=== PATIENT | female | born 1975 | race Two or more races ===

== ENCOUNTER 2025-11-06 08:40 | Outpatient (AMB) | payer OTHER, SELFPAY ==
--- OUTSIDE RECORDS SUMMARY | 2025-11-06 09:05 | XMS_ITS | Clinical Summary ---
Author Organization [facility] Building Address [address] [place] [phone] Phone Care Team Providers Care English Language Arts Teacher Name Role Phone Arturo Galindo MD Primary Care Provider [phone] Allergies No known active allergies Medications bisacodyL (Dulcolax, bisacodyl,) 5 mg EC tablet Take 2 tabs at 6pm as directed. 09/19/2023 Active Hospital, Clinic, or Other Facility Administered Medication Ordered Dose Route Frequency Start Date End Date Status levonorgestreL (MIRENA) 21 mcg/24hr (up to 8 yrs) 52 mg IUDIndications:Encounter for IUD removal and reinsertion utrn Once 12/28/2024 Active Active Problems Problem Noted Date Diagnosed Date Morbid obesity with BMI of 40.0-44.9, adult 10/21 Chronic bilateral low back pain without sciatica 09/05/2019 Lumbar facet arthropathy 09/05/2019 Spinal stenosis of lumbar re gion without neurogenic claudication 09/05/2019 Foot pain, bilateral 08/09/2014 Morbid obesity 08/09/2014 Immunizations Immunization Administration Dates Next Due Influenza Quadravalent, MDCK , 0.5ml, preservative free (Flucelvax) 6mo and older 12/18/2018 Tdap Tetanus diptheria acell ular pertussis (Boostrix; Adacel) 7yo and older 08/09/2014 Surgical History Surgery Date Site/Laterality Comments OTHER SURGICAL HISTORY PROCEDURE: DENIES PREVIOUS SURGERY Medical History Medical History Date Comments Personal history of pulmonary embolism DX:Personal history of pulmonary embolism Morbid obesity (CMS/HCC V24, CMS/HCC V28) DX:Morbid obesity (HCC) Pain in limb DX:Pain in limb; COMMENT: foot pain Family History Medical History Relation Name Comments Diabetes Father Diabetes Mother Breast cancer Sister 40 recent Coronary artery disease Neg Hx Hypertension Neg Hx Relation Name Status Comments Father Mother Sister 40 Alive Social History Tobacco Use Types Packs/Day Years Used Date Smoking Tobacco: Never Smokeless Tobacco: Never Tobacco Cessation:Counseling Given: Not Answered Alcohol Use Standard Drinks/Week Comments No 0 (1 standard drink = 0.6 oz pur e alcohol) Comments No Sex and Gender Information Value Date Recorded Sex Assigned at Not on file Legal Sex Female 4:53 AM EST Gender Identity Not on file Sexual Orientation Not on file Last Filed Vital Signs Vital Sign Reading Time Taken Comments Blood Pressure 114/68 01/04/2025 2:31 PM EST Pulse 90 01/04/2025 2:31 PM EST Temperature - - Respiratory Rate 18 01/04/2025 2:31 PM EST Oxygen Saturation - - Inhaled Oxygen Concentration - - Weight 115 kg (254 lb) 01/04/2025 2:31 PM EST Height 157.5 cm (5' 2 ) 01/04/2025 2:31 PM EST Body Mass Index 46.46 01/04/2025 2:31 PM EST Plan of Treatment Health Maintenance Due Date Last Done Comments Colorectal Cancer Screening: Colonoscopy 1975 Hepatitis B Vaccines (1 of 3 - 19+ 3-dose series) 1994 Cervical Cancer Screening: Pap Smear 07/03/2021 07/03/2018, 07/03/2018 Cholesterol Screening (Lipid Panel) 10/30/2022 08/09/2014 HIV Screening 10/30/2022 Hepatitis C Screening 10/30/2022 Social Influencers of Health Screening 10/30/2022 Breast Cancer Screening 05/28/2024 05/28/20 22, 11/28/2020, 09/10/2019, Additional history exists DTaP,Tdap,and Td Vaccines (2 - Td or Tdap) 08/09/2024 08/09/2014 Depression Screening 11/21/2024 Pneumococcal Vaccine: 50+ Years (2 of 2 - PCV) 2025 10/23/2009 RSV Immunization Adult Patients (1 - Risk 50-74 years 1-dose series) 2025 Zoster Vaccines (1 of 2) 2025 COVID-19 Vaccine ( - 2024- season) 2025 12/14/2021, 04/25/2021, 04/04/2021 Influenza Vaccine (#1) 2025 3, 12/18/2018, 09/02/2016, Additional history exists HIB Vaccines Aged Out No longer eligi ble based on patient's age to complete this topic HPV Vaccines Aged Out No longer eligi ble based on patient's age to complete this topic Hepatitis A Vaccines Aged Out No long er eligible based on patient's age to complete this topic IPV Vaccines Aged Out No longer eligi ble based on patient's age to complete this topic MMR Vaccines Aged Out No longer eligi ble based on patient's age to complete this topic Meningococcal ACWY Vaccine Aged Out N o longer eligible based on patient's age to complete this topic Meningococcal B Vaccine Aged Out No l onger eligible based on patient's age to complete this topic RSV Immunization Patients Under 20 months Aged Out No longer eligible based on patient's age to complete this topic Varicella Vaccines Aged Out No longer eligible based on patient's age to complete this topic Procedures Procedure Name Priority Date/Time Associated Diagnosis Comments SCREENING MAMMOGRAPHY BI 2-VIEW BREAST INC CAD Routine 05/28/2022 2:53 PM EDT Encounter for screening mammogram for malignant neoplasm of breast PAP SMEAR Routine 07/03/2018 LIPID PANEL Routine 08/09/2014 from Last 3 Months or Most Recently Relevant to Health Maintenance Results * SCREENING MAMMOGRAPHY BI 2-VIEW BREAST INC CAD (05/28/2022 2:53 PM EDT) Anatomical Region Laterality Modality Radiographic Nora ging 11/28/2020 10:3 1 AM EST Narrative 05/31/2022 10:40 AM EDT This is a summary report. The complete report is available in the patient's medical record. If you cannot access the medical record, please contact the sending organization for a detailed fax or copy. Exam: Screening mammogram Findings: Digital bilateral full-field screening mammography is performed with tomosynthesis and interpreted with the aid of computer-aided detection. Comparison is made with 11/28/2020 and as far back as 09/08/2018. Breast parenchyma is heterogeneously dense, limiting mammographic sensitivity. Waxing and waning bilateral circumscribed lesions which is a pattern seen with cysts and breast cysts have been documented on prior ultrasound exams; no one area has more suspicious features than another. No architectural distortion or suspicious calcifications. Impression: No mammographic evidence of malignancy. BI-RADS 2-benign Procedure Note Hannah Mendenhall MD - 11/09/2022 This is a summary report. The complete report is available in thepatient's medical record. If you cannot access the medical record, pleasecontact the sending organization for a detailed fax or copy. Exam: Screening mammogram Findings: Digital bilateral full-field screening mammography is performedwith tomosynthesis and interpreted with the aid of computer-aideddetection. Comparison is made with 11/28/2020 and as far back as1. Breast parenchyma is heterogeneously dense, limiting mammographicsensitivity. Waxing and waning bilateral circumscribed lesions which is apattern seen with cysts and breast cysts have been documented on priorultrasound exams; no one area has more suspicious features than another.No architectural distortion or suspicious calcifications. Impression: No mammographic evidence of malignancy. BI-RADS 2-benign Arturo Galindo MD IMG XR PROCEDURES Final Result * Pap smear (07/03/2018) 07/03/2018 Narrative HISTORICAL TESTING LAB RESULTING AGENCY - 07/06/2018 2:48 PM EDT [id number] THINPREP PAP, IMAGED: NEGATIVE FOR SQUAMOUS INTRAEPITHELIAL LESION AND MALIGNANCY . RESULT OF APTIMA HIGH RISK HPV ASSAY: NEGATIVE (SEROTYPES 16,18,31,33,35,39,45,51,52,56,58,59,66,68) CALEB MUNSON(ASCP) (CASE ELECTRONICALLY SIGNED 07 06 2018) ADEQUACY: SATISFACTORY. ENDOCERVICAL/TRANSFORMATION ZONE COMPONENT ABSENT. SOURCE: THINPREP PAP HPV ANY DX: REFLEX 16 AND 18, CERVICAL, IMAGED: CLINICAL INFORMATION: HPV ANY DIAGNOSIS. PAP HX NEG, Z12.4 Ada Wyatt CNM LAB CYTOLOGY ORDERA BLES Final Result HISTORICAL TESTING LAB RESULTING AGENCY * (ABNORMAL) Lipid panel (08/09/2014) LDL/HDL Ratio 4 0 - 4 Triglycerides 158(A) 0 - 150 mg/dL Cholesterol 180 0 - 200 mg/dL HDL 41 >=40 mg/dL LDL Cholesterol 108(A) 0 - 100 mg/dL Blood Venous blood specimen / Unknown Historical Provider MD LAB BLOOD ORDERABLES Tish l Result from Last 3 Months or Most Recently Relevant to Health Maintenance Insurance [employer] [place] [employer] Care Teams English Language Arts Teacher Relationship Specialty Start Date End Date Arturo Galindo MD [facility] [place] [address] PCP - General Internal Medicine 02/25/22
--- NOTE | 2025-11-06 09:20 | A.OFFVIS_ITS ---
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 BMI 44.8 *DIGITAL TECHNICIAN International Coordinator Required: Yes International Coordinator Services: International Coordinator Present Information Interpreted: clinical only Allergies No Known Allergies Allergy (Verified 11/06/25 09:22) Medication List - Last Reconciled 11/06/25 by Js Bowers MD No Known Home Meds HPI HPI TV 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 BMI 44.8 *DIGITAL TECHNICIAN: Details: Start time: 9am, End time: 10am ?I spent 55 minutes speaking with the patient on the phone plus an additional 5 minutes reviewing and updating records for a total of 60 minutes HPI Comments Details: Previous weight loss efforts: Pills prescribed by PCP Wakes up:5am, Sleeps: 9pm Breakfast: 8am (boiled eggs and bread) Lunch: skips Dinner: 5pm (chicken, rice) Snacks: 1-2 snacks between breakfast and dinner (granola, sandwich) Exercise: none Beverages: Coffee (2 cups/d with milk), Tea: none, Soda: none, Juice: ([place] juice), ETOH: none PFSH Medical History (Updated 11/06/25 @ 09:24 by Js Bowers MD) Morbid obesity Surgical History (Updated 10/01/25 @ 15:56 by Darya Flynn CMA) No history of previous surgery Family History (Updated 10/01/25 @ 15:57 by Darya Flynn CMA) Mother No problems noted. Father No problems noted. Social History (Updated 10/01/25 @ 15:57 by Darya Flynn CMA) Alcohol intake: never Patient Tobacco Use Status: Never used Tobacco Telehealth Telehealth Telehealth Platform: Telephone Location of provider rendering services: practice address Location of patient: address on file Patient Identification confirmed using: Name, : Yes Telehealth method: voice only Patient verbally consented to treatment: Yes Patient verbally consented to billing insurance company: Yes Patient informed of any privacy concerns related to visit: Yes Minutes spent on Phone/Video with Pt.: 60 Assessment & Plan Assessment & Plan (1) Morbid obesity: Code(s): E66.01 - Morbid (severe) obesity due to excess calories Category: Medical Plan: 1.? Plan for lap sleeve gastrectomy. If diaphragmatic or ventral hernias are present at time of surgery, these will be repaired laparoscopically as well. I emphasized the importance of close follow-up, adherence to instructions and good communication. The surgery does not replace the need to change your lifestlyle which is the cause of the obesity problem. The surgery provides the motivation to try again to change your lifestyle, it reduces the appetite and make the transition to a better lifestyle easier and doubles the amount of weight you would lose compared to doing the lifestyle change without the surgery. You will need to be on a liquid diet with protein shakes for 2 weeks b efore surgery to maximize weight loss and boost your nutritional status to recover better from surgery and also for the first two weeks after surgery to let the stomach heal before we introduce other foods. After the first 2 weeks we will introduce protein bars and soft foods like scrambled eggs, cottage cheese and yogurt and after the 6th week will introduce meat, fish and cooked vegetables in small amounts. Over time you should be able to eat everything in small amounts. Side effects like nausea, vomiting, heartburn or abdominal pain are not common in the practice unless you are not following in the practice. This operation requires lifetime commitment to following in our practice and communication with me. You will much less weight and experience side effects if you don?t communicate or not following in the practice. Complications are rare and in our practice is about 1/10 of the national average. However, you can develop bleeding that may require transfusion (hasn?t happened for year in the practice), you may from complications (we did not have any deaths in the practice) and infections. Infections are usually a result of breakdown in communication or not understanding or following directions correctly. They are difficult to treat, they can happen during the first 6 weeks, they may require to be in the hospital for weeks or even months, not being able to eat by mouth and you may have drains and surgeries to try and correct the issue. Other risks and complications include possible conversion to an open procedure, leaks, small bowel obstruction, blood clots, cardiac, or pulmonary complications, as alf complications such as ulcers, insufficient weight loss and vitamin deficiencies. 2. Nutritional counseling. Start with one premade PREMIER protein (buy at [employer] or [employer]) shake (mix 4oz of Premier mixed with 4oz low fat unsweetened almond milk each) at 6am-8am, one protein bar (Fit Crunch protein bar, buy at [employer], or [employer]) at 9am-11am, another premade PREMIER protein shake (mix 4oz of Premier mixed with 4oz low fat unsweetened almond milk each) at 12pm-2pm, another [employer] protein bar at 3pm-5pm,? dinner at 6pm (8 forks of protein and 8 forks of salad/vegetables), another HALF [employer] protein bar at 8pm- 9pm. So you do 2 protein shakes, 2.5 protein bars and one meal per day. Meal to include lean meat (beef, fish, pork, turkey, chicken), or bahraini yogurt, or egg whites, or beans with a salad with olive oil and fruits (berries, pears, apples, kiwi). Avoid salt, breads, potatoes, rice, pasta, desserts. 3. Each shake would be drunk slowly, like coffee in a period of 2 hours. 4. Cut each bar in 4 pieces and eat each piece in 30min ?to make each bar last 2 hours. 5. I emphasized the importance of measuring accurately the food portion and measure it when serving the food in plate 6. The meal portions include 8 full-size forks of meat and 8 full-size forks of salad. You always eat the meat portion but you can replace up to 4 forks for salad/vegetables with rice, potatoes or pasta, or a fruit ?if you like. The less you do it the better weight loss will be. 7. One full-size fork is what it can be scooped on the fork without falling aside and not what can be bit with the fork. Use regular forks like those you find in a typical restaurant. 8.? Please buy the body composition scale we discussed and send me weight measurements as soon as possible and then once a week. Always include your diet and exercise plan. 9. The best choice would be to purchase a stationary bike at home that can track calories. If you get one, please start stationary bike at a resistance level of 4.0 Increase level by 1.0 every 3 min to a max level of 10.0. Stay at this level for 3 min and then return to level 4.0 and repeat same steps until 300 calories are burned. Goal is to burn 2000 calories per week on exercise. 10.?It is important of avoiding and for at least 18 months postoperatively and has been discussed at the infosession. 11. Goal is to lose at least 1.5-2lbs per week 12. Goal to lose 10% of your weight before surgery, which is about 25lbs. Ultimate weight goal: 220lbs before surgery 13. Please follow the diet plan exactly without any change. If you don't like something about the plan or you feel hungry you need to communicate with me so I can help you revise the plan. You should not change the plan yourself 14. To be scheduled for EGD to assess the stomach's anatomy. The possibility of biopsies was discussed. Patient needs to avoid use of NSAIDs and aspirin for 1 week prior to EGD. You must be on liquids only the day before your endoscopy. Risks of perforation and bleeding was discussed with the patient. This will be an outpatient procedure with IV sedation.
[2025-11-06 09:33] VITALS: BMI 44.7
== END 2025-11-06 10:01 | disposition home or self-care (01) ==
LOC: HO.HBS 08:40
PROVIDERS: PCP Internal Medicine; Visit Provider Surgery
DX: E66.01 Morbid (severe) obesity due to excess calories (principal); Z68.41 Body mass index [BMI] 40.0-44.9, adult
CPT/HCPCS: 99205

== ENCOUNTER 2025-11-19 09:19 | Outpatient (REF) | payer OTHER, SELFPAY ==
--- NOTE | ~2025-11-19 | XR_ITS ---
EXAMINATION: XR CHEST 2 VIEWS HISTORY: E66.01 - Morbid (severe) obesity due to excess calories COMPARISON: There are no prior studies available for comparison. FINDINGS: PA and lateral views of the chest are submitted. The lungs are expanded and clear. There is no pleural effusion, pneumothorax, or pulmonary vascular congestion. The heart is normal in size. There is degenerative disc disease of the spine. XR/XR chest 2V IMPRESSION: Clear lungs. Electronically signed by: Lee Willard MD 11/19/2025 10:28 AM KIERRA GRACE
--- NOTE | 2025-11-19 09:32 | ECG_ITS ---
Test Reason : obessity Blood Pressure : */* mmHG Vent. Rate : 78 BPM Atrial Rate : 78 BPM P-R Int : 156 ms QRS Dur : 86 ms QT Int : 390 ms P-R-T Axes : 54 46 35 degrees QTcB Int : 444 ms Normal sinus rhythm Normal ECG No previous ECGs available Referred By: Js Bowers Electronically Signed By: LUIS CLEMENTS
[2025-11-19 09:41] LABS: MANUAL DIFF FLAG NO
[2025-11-19 10:53] LABS: Hematocrit 42.1 % (37.0-47.0); Hemoglobin 13.9 g/dl (12.0-16.0); Imm Gran Abs Auto 0.02 X10*3/uL (0.00-0.03); Imm Gran Pct Auto 0.4 % (0.0-0.4); Lymphocytes Absolute Auto 1.9 X10*3/uL (1.2-4.9); Mean Corpuscular HGB Conc 33.0 g/dl (31.0-35.0); Mean Corpuscular Hemoglobin 28.8 pg (27.0-33.0); Mean Corpuscular Volume 87.2 fL (80.0-98.0); NRBC Abs Auto 0.000 X10*3/uL (0.0-0.012); NRBC Pct Auto 0.0 /100WBC (0.0-0.2); Platelet Count 244 X10*3/uL (160-400); Red Blood Count 4.83 X10*6/uL (4.20-5.50); White Blood Count 5.6 X10*3/uL (4.8-10.8)
--- OUTSIDE RECORDS SUMMARY | 2025-11-19 11:49 | XMS_ITS | Clinical Summary ---
Author Organization [facility] Building Address [address] [place] [phone] Phone Care Team Providers Care Scroll Machine Operator Name Role Phone Arturo Galindo MD Primary Care Provider [phone] Allergies No known active allergies Medications bisacodyL [...] RESULTING AGENCY - 07/06/2018 2:48 PM EDT [id number] THINPREP PAP, IMAGED: NEGATIVE FOR SQUAMOUS INTRAEPITHELIAL [...] [employer] [place] [employer] Care Teams Scroll Machine Operator Relationship Specialty Start Date End Date Arturo Galindo MD [facility] [place] [address] PCP - General Internal Medicine 02/25/22
[2025-11-19 12:20] LABS: Folate 7.5 ng/mL (> or = 4.0); Vitamin B12 456 pg/mL (200-900)
[2025-11-19 12:34] LABS: Alanine Aminotransferase 24 U/L (0-31); Albumin Level 4.3 g/dL (3.5-5.0); Alkaline Phosphatase 73 U/L (39-117); Anion Gap 12 (12-20); Aspartate Amino Transferase 27 U/L (5-31); Blood Urea Nitrogen 14 mg/dL (9-16); Calcium 9.0 mg/dL (8.4-10.2); Carbon Dioxide 23 mmol/L (22-29); Chloride 108 mmol/L (96-108); Cholesterol 166 mg/dL (<200); Estimated Glomerular Filt Rate > 60; Ferritin 156 ng/mL (10-250); HDL Cholesterol 37 mg/dL (>40); Iron 62 mcg/dL (30-160); Percent Iron Saturation 24 % (15-50); Potassium 3.8 mmol/L (3.3-5.1); Sodium 139 mmol/L (135-145); Total Iron Binding Capacity 260 mcg/dL (228-428); Total Protein 7.3 g/dL (6.5-8.0); Triglycerides 68 mg/dL (<150); Unsaturated Iron Binding 198 ug/dL
== END 2025-11-19 09:20 ==
LOC: HO.XRAY 09:19
PROVIDERS: PCP Internal Medicine; Visit Provider Surgery
DX: E66.01 Morbid (severe) obesity due to excess calories (principal)
CPT/HCPCS: 36415; 71046; 80053; 80061; 82306; 82607; 82728; 82746; 83036; 83525; 83540; 84425; 84443; 84590; 84630; 85025; 86140; 93005

== ENCOUNTER → 2025-11-19 09:32 | Outpatient (BNV) | payer OTHER, SELFPAY | PROVIDERS: PCP Internal Medicine; Visit Provider Internal Medicine | DX: E66.01 Morbid (severe) obesity due to excess calories (principal); Z68.41 Body mass index [BMI] 40.0-44.9, adult | CPT/HCPCS: 93010 ==

== ENCOUNTER → 2025-11-19 09:53 | Outpatient (BNV) | payer OTHER, SELFPAY | PROVIDERS: PCP Internal Medicine; Visit Provider Radiology Diagnostic Radiology | DX: E66.01 Morbid (severe) obesity due to excess calories (principal) | CPT/HCPCS: 71046 ==